=== PATIENT | female | born 1980 | race Caucasian/White ===

== ENCOUNTER 2018-02-18 05:18 | Emergency (ER) | payer SELFPAY | END 2018-02-18 05:46 | disposition left against medical advice (07) | LOC: ER 05:18 | DX: Z76.0 Encounter for issue of repeat prescription (principal); Z53.21 Procedure and treatment not carried out due to patient leaving prior to being seen by health care provider ==

== ENCOUNTER 2018-02-18 06:00 | Emergency (ER) | payer SELFPAY | END 2018-02-18 06:50 | disposition home or self-care (01) | LOC: ER 06:00 | DX: E03.9 Hypothyroidism, unspecified (principal); Z76.0 Encounter for issue of repeat prescription; Z87.820 Personal history of traumatic brain injury; Z88.0 Allergy status to penicillin; Z88.8 Allergy status to other drugs, medicaments and biological substances | CPT/HCPCS: 99283 ==